=== PATIENT | female | born 1985 | race Caucasian/White ===

== ENCOUNTER 2023-09-13 06:34 | Inpatient (IN) ==
[2023-09-13] MEDS ORDERED: Labetalol IV 5 MG/ML 20 ml VIAL ONE (06:53)
[2023-09-13] MEDS: Magnesium Sulfate OB PREMIX 40 GM/1,000 ML BAG ONE (07:07)
[2023-09-13] MEDS: Lactated Ringers 1000 ml BAG 1,000 ML IV SCH ×2 (07:08→23:33)
[2023-09-13] MEDS: Magnesium Sulf 4 GM/100 ML IV 4,000 MG/100 ML BAG IVPB ONE (07:08)
[2023-09-13] MEDS: Labetalol IV 5 MG/ML 20 ml VIAL IV PUSH ONE (07:10)
[2023-09-13] MEDS ORDERED: Lidocaine 1% VIAL 10 MG/ML 30 ML VIAL INJ PRN (07:17)
[2023-09-13] MEDS ORDERED: Lactated Ringers 1000 ml BAG 1,000 ML IV ONE (07:17)
[2023-09-13] MEDS ORDERED: Buffered Lidocaine 1% SYRIN 1 ml INTRADERM ONE (07:17)
[2023-09-13] MEDS: Magnesium Sulfate 2 gm BAG 2 GM/50 ML BAG IVPB ONE (07:28)
[2023-09-13] MEDS: Labetalol IV 5 MG/ML 20 ml VIAL IV PUSH PRN (07:33)
[2023-09-13 08:24] LABS: Urine Appearance Clear; Urine Bilirubin Negative (Negative); Urine Blood 2+ (Negative); Urine Color Light-Yellow; Urine Glucose Negative (Negative); Urine Ketones Negative (Negative); Urine Nitrite Negative (Negative); Urine Protein Trace (Negative); Urine Specific Gravity 1.015 (1.002-1.030); Urine Urobilinogen Negative (Negative)
[2023-09-13 08:28] LABS: Urine Bacteria Absent /HPF (Absent); Urine Red Blood Cell 3+(>10/hpf) /HPF (0-Trace); Urine Squamous Epithelial Cell Present /HPF (Absent); Urine White Blood Cell 1+(6-10/hpf) /HPF (0-Trace)
[2023-09-13 08:40] LABS: Activated Partial Thrombo Time 27.7 seconds (26.0-38.0); INR 0.85 (0.83-1.13)
[2023-09-13 08:44] LABS: Platelet Count 161 10^3/ul (150-450)
[2023-09-13] MEDS: Oxytocin in LR 20,000 MILLI.UNIT/1,000 ML BAG IV SCH ×2 (08:48→18:59)
[2023-09-13 08:54] LABS: Schistocytes ABSENT
[2023-09-13] MEDS: Terbutaline INJ 1 MG/ML 1 ml VIAL ONE (10:46)
[2023-09-13] MEDS ORDERED: Sodium Citrate/Citric Acid LIQ 15 ML UDC ONE (10:54)
[2023-09-13] MEDS ORDERED: ceFOXitin 2 GM IVPREMIX 2 GM/50 ML BAG ONE (10:54)
[2023-09-13] MEDS ORDERED: Midazolam 5 mg/5 ml VIAL 1 mg/ml 5 ml VIAL (5 mg) ONE (11:07)
[2023-09-13] MEDS ORDERED: fentaNYL 250 mcg/5 ml 50 MCG/ML 5 ml VIAL (250 MCG) ONE (11:07)
[2023-09-13] MEDS ORDERED: HYDROmorphone 1 MG/1 ML SYRINGE ONE (11:16)
[2023-09-13] MEDS ORDERED: Rocuronium 50 mg VIAL 10 mg/ml 5 ml VIAL (50 mg) ONE (11:16)
[2023-09-13 11:18] LABS: Urine Benzodiazepine Screen None Detected (None Detect); Urine Cannabinoids Screen None Detected (None Detect); Urine Opiates Screen None Detected (None Detect)
[2023-09-13] MEDS ORDERED: Acetaminophen IV 1 GM/100ML 1,000 MG/100 ML BAG IV ONE (11:24)
[2023-09-13] MEDS ORDERED: Phenylephrine 40 mcg/mL 10mL (400mcg) SYRINGE ONE (11:29)
[2023-09-13] MEDS ORDERED: Oxytocin 10 UNITS/ML 1 ML VIAL ONE (11:31)
[2023-09-13] MEDS ORDERED: Bupivacaine 0.5% SDV PF 30ML VIAL ONE (11:43)
[2023-09-13] MEDS ORDERED: fentaNYL 100 mcg/2 ml 50 MCG/ML VIAL IV PRN (11:56)
[2023-09-13] MEDS ORDERED: Naloxone 0.4 mg VIAL 0.4 mg/ml 1 ml VIAL IV PRN (11:56)
[2023-09-13] MEDS ORDERED: Ondansetron 4 mg VIAL 2 MG/ML 2 ml VIAL IV PRN (11:56)
[2023-09-13] MEDS ORDERED: Glycerin ADULT 2.4 gm SUPP PR PRN (12:27)
[2023-09-13] MEDS ORDERED: Witch Hazel PAD JAR TOPICAL PRN (12:27)
[2023-09-13] MEDS ORDERED: Dibucaine 1% OINT 28.35 GM TUBE PR PRN (12:27)
[2023-09-13 13:51] LABS: HIV 4th Generation Nonreactive (Nonreactive)
[2023-09-13 14:16] LABS: Chlamydia trachomatis NAA Negative (Negative); Neisseria gonorrhoeae (GC) NAA Negative (Negative)
[2023-09-13] MEDS: hydrALAZINE 20 mg/ml 1 ML Vial IV IV SLOW PU PRN (15:31)
[2023-09-13 19:38] LABS: Hepatitis C Antibody Reactive (Negative)
[2023-09-13] MEDS: Calcium Carb (TUMS) 500 mg CHEW TAB PO PRN (22:25)
[2023-09-14 06:54] LABS: ABS Lymphocytes 1.8 10^3/uL (1.0-4.8); ABS Monocytes 0.4 10^3/uL (0.0-0.9); ABS Neutrophils 7.2 10^3/uL (1.5-7.6); ABS Nucleated RBC 0.01 10^3/ul; Eosinophil % 0.1 %; Hematocrit 30.6 % (35-45); Hemoglobin 10.3 g/dL (11.5-14.3); Lymphocyte % 19.2 %; Mean Corpuscular Hemoglobin 24.5 pg (27-33); Mean Corpuscular Hgb Conc 33.6 g/dL (31-36); Mean Corpuscular Volume 72.8 fL (80-97); Mean Platelet Volume 10.1 fL (7.5-11.2); Nucleated Red Blood Cells % 0.1 %/100WBC (0.0-0.8); Platelet Count 161 10^3/uL (150-450); Red Cell Distribution Width 15.3 % (12-17); White Blood Count 9.5 10^3/uL (3.8-11.8)
[2023-09-14 07:35] LABS: Calcium 7.1 mg/dL (8.6-10.3); Creatinine, Serum 0.99 mg/dL (0.51-0.95); Potassium 4.6 mmol/L (3.5-5.0); eGFR CKD-EPI 75.8 (>60)
[2023-09-14 10:35] LABS: Hepatitis B Surface Antigen Nonreactive (Nonreactive)
[2023-09-14] MEDS ORDERED: Measles, Mumps,Rubella VACC 0.5 ML/VIAL SUBCUT ONE (12:00)
[2023-09-14 17:28] LABS: Lead,Venous, B < 1.0 mcg/dL (<3.5); Submitting Laboratory Phone 6072744474
[2023-09-15] MEDS: Measles, Mumps,Rubella VACC 0.5 ML/VIAL SUBCUT ONE (14:36)
[2023-09-16 13:04] LABS: Amphetamine by LC-MS/MS, U 2272 ng/mL (Cutoff: 25); MDA,Ecstasy metabolite LC-MS Negative ng/mL (Cutoff: 25); MDMA(Ecstasy)by LC-MS/MS,U Negative ng/mL (Cutoff: 25); Methamphetamine by LC-MS/MS, U 14985 ng/mL (Cutoff: 25); Phentermine-by LC-MS/MS, U Negative ng/mL (Cutoff: 25); Pseudo/Ephedrine LC-MS/MS, U Negative ng/mL (Cutoff: 25); Urine Amphetamines Interp Positive.
[2023-09-16] MEDS: Ampicillin ADVAN 2 GM in NS 0.9% 100 ml BAG 100 ML IVPB SCH (16:31)
[2023-09-16 16:37] LABS: ABS Eosinophils 0.2 10^3/uL (0.0-0.5); ABS Lymphocytes 1.7 10^3/uL (1.0-4.8); ABS Monocytes 0.3 10^3/uL (0.0-0.9); ABS Neutrophils 7.4 10^3/uL (1.5-7.6); ABS Nucleated RBC 0.01 10^3/ul; Eosinophil % 1.7 %; Hematocrit 26.4 % (35-45); Hemoglobin 8.6 g/dL (11.5-14.3); Mean Corpuscular Hemoglobin 24.1 pg (27-33); Mean Corpuscular Hgb Conc 32.7 g/dL (31-36); Mean Corpuscular Volume 73.7 fL (80-97); Mean Platelet Volume 8.6 fL (7.5-11.2); Nucleated Red Blood Cells % 0.1 %/100WBC (0.0-0.8); Platelet Count 249 10^3/uL (150-450); Red Blood Count 3.58 10^6/uL (3.63-4.92); Red Cell Distribution Width 15.4 % (12-17); White Blood Count 9.7 10^3/uL (3.8-11.8)
[2023-09-16 16:51] LABS: Albumin 2.6 g/dL (3.2-5.2); Calcium 8.4 mg/dL (8.6-10.3); Creatinine, Serum 0.69 mg/dL (0.51-0.95); Globulin 2.7 g/dL (2-4); Potassium 4.4 mmol/L (3.5-5.0); Total Bilirubin 0.3 mg/dL (0.2-1.0); Total Protein 5.3 g/dL (6.4-8.9); eGFR CKD-EPI 115.3 (>60)
[2023-09-16] MEDS: Clindamycin 900 MG/D5W BAG 900 MG/50 ML BAG IVPB SCH (17:32)
[2023-09-19 13:07] VITALS: BP 123/79
[2023-09-19] MEDS: medroxyPROGESTERone ACETATE 150 MG/ML VIAL IM ONE (17:02)
== END 2023-09-19 20:58 | disposition home or self-care (01) | DRG 786 ==
LOC: MCHOBOUT 06:34 → MCHOB 06:53
PROVIDERS: ADMIT Obstetrics & Gynecology; ATTEND Obstetrics & Gynecology